=== PATIENT | male | born 1980 | race Caucasian/White ===

== ENCOUNTER 2017-04-29 12:14 | Emergency (ER) | payer BC, OTHER ==
[~2017-04-29] VITALS: Ht 177.8 cm; Wt 74.8 kg
[2017-04-29 12:27] VITALS: BP 109/57
[2017-04-29] MEDS ORDERED: ALPRAZOLAM 0.5 MG TABLET PO ONE (12:30)
[2017-04-29] MEDS ORDERED: ALPRAZOLAM 0.5 MG TABLET ONE (12:37)
== END 2017-04-29 13:08 ==
LOC: ER 12:16
DX: Z02.89 Encounter for other administrative examinations (principal); F32.9 Major depressive disorder, single episode, unspecified; F43.10 Post-traumatic stress disorder, unspecified; G40.909 Epilepsy, unspecified, not intractable, without status epilepticus; G89.29 Other chronic pain; K50.90 Crohn's disease, unspecified, without complications; M41.9 Scoliosis, unspecified
CPT/HCPCS: 99283; A4606; Z7610